=== PATIENT | male | born 1965 | race Caucasian/White ===

== ENCOUNTER 2021-04-09 12:05 | Outpatient (CLI) | payer BC, SELFPAY ==
[2021-04-09 12:29] VITALS: BP 135/83; PULSE 74; RESP 20; TEMP 38.3; O2SAT 98; BMI 30.2
[2021-04-09 13:00] VITALS: BP 117/78; PULSE 67; RESP 16; O2SAT 95
[2021-04-09 13:56] VITALS: BP 127/78; PULSE 70; RESP 18; TEMP 38.8; O2SAT 93
== END 2021-04-09 12:06 | disposition home or self-care (01) ==
LOC: OPS 12:08
PROVIDERS: PCP Nurse Practitioner Family; Visit Provider Nurse Practitioner Family
DX: U07.1 COVID-19 (principal)
CPT/HCPCS: 96365

== ENCOUNTER 2024-03-29 20:16 | Emergency (ER) | payer BC, SELFPAY ==
[2024-03-29] VITALS (13 sets, daily range): BP systolic 82–111; BP diastolic 65–81; PULSE 76–95; RESP 16–31; O2SAT 93–98; BMI 20.7
--- NOTE | 2024-03-29 20:38 | ED_ITS ---
HPI - Nausea/Vomiting/Diarrhea 2 General: Chief complaint: Nausea/Vomiting/Diarrhea Stated complaint: Cancer Pt\Vomiting with Blood Time Seen by Provider: 03/29/24 20:32 History of Present Illness: Patient presents to the ER with his at bedside with complaints of nausea vomiting and constipation. said he has had some blood in his vomitus and it has been like coffee ground emesis. He is constipated they gave him an enema earlier today which she had decent results but his belly is still mildly distended and tender. Patient does have stage IV renal cancer and is undergoing treatment to the oncologist in [facility]. He just recently changed chemotherapy agents approximate week ago due to the fistula not working.. said the new chemotherapy agents can cause severe nausea vomiting constipation and blood clots. Approximately 2 days ago he was diagnosed [place] with a blood clot in his inferior vena cava and started on Eliquis. Patient denies any fever or chills, lightheadedness dizziness chest pain or syncopal type episodes Patient's stated he has a left pleural drain that is due to be drained, upon discharge from the hospital at [facility] he had a right pleural effusion that was worse than his left pleural effusion, his WBCs was about 20K, there he had a CT scan of his chest abdomen pelvis with contrast. Related Data Previous Rx's Medication Instructions Recorded levofloxacin 500 mg tablet 500 mg PO Q24H 7 days #7 tabs 03/30/24 meclizine 25 mg tablet 25 mg PO QID PRN nausea and 03/30/24 vomiting #14 tabs promethazine 25 mg tablet 25 mg PO Q6H PRN nausea and 03/30/24 vomiting #14 tabs Allergies Allergy/AdvReac Type Severity Reaction Status Date / Time No Known Allergies Allergy Verified 03/29/24 20:29 Review of Systems 2 General: Reports: 10 or more systems reviewed and unremarkable except in HPI and below Physical Exam 2 Const: COMMON NORMALS: no acute distress, average body habitus, patient oriented x3, no limitations, healthy appearing, alert and well nourished HENMT: COMMON NORMALS: normocephalic, atraumatic, hearing grossly normal bilaterally, external ears normal, Normal external nose present and moist oral mucous membranes HEAD & SCALP: normocephalic and atraumatic NOSE: Normal external nose present EXTERNAL EAR: Yes external ears normal Neck/C-Spine: COMMON NORMALS: no JVD Chest: COMMONS NORMALS: normal inspection of the chest and normal palpation of entire chest wall Resp: COMMON NORMALS: normal respiratory effort, No retractions, No use of accessory muscles and clear to auscultation bilaterally AUSCULTATION: clear to auscultation bilaterally Cardio: COMMON NORMALS: no JVD, regular rate, regular rhythm, S1 normal heart sound present, S2 normal heart sound present, No gallops present (Cardio), No clicks present (Cardio), No murmurs present (Cardio) and No rub (Cardio) R ATE: regular rate RHYTHM: regular rhythm HEART SOUNDS: S1 normal heart sound present and S2 normal heart sound present GI: COMMON NORMALS: Soft to palpation, non-tender, No hepatosplenomegaly present and no masses PALPATION: Yes Soft to palpation and Yes No hepatosplenomegaly present Neuro: COMMON NORMALS: patient oriented x3 SENSORIUM/ORIENTATION: Yes alert Course 2 Vital Signs: Vital signs: Vital Signs Pulse Rate 89 03/30/24 03:52 Respiratory Rate 25 H 03/30/24 03:13 Blood Pressure 114/70 03/30/24 03:52 Pulse Oximetry 93 03/30/24 03:52 Oxygen Delivery Me thod Nasal Cannula 03/30/24 01:00 Oxygen Flow Rate 2 03/29/24 20:26 MDM - Nausea/Vomiting/Diarrhea Medical Decision Making After checking on the patient multiple times during his stay here. Patient said the combination of medicines and fluid made him feel better and he was ready to go home.. Patient has not had any more vomiting and was able to drink water without difficulty. Patient did receive 3 L of normal saline and Zosyn. Patient also received 10 mg of Decadron, 25 mg of Benadryl, 50 mg of meclizine, 10 mg Reglan, 8 mg of Zofran. The findings of the lab work was reviewed with the patient and his , as well as the CT scans and lab work that was done in [place] 2 days prior. There has not been much of a change in his lab work. I feel the possible pneumonia and effusion on the left side today is probably due to him not draining his chest tube yet and it needs to be drained currently. And since his white count is almost the same as it was 2 days ago this would not go along with pneumonia, and the elevation of his lactic acid could be due to dehydration and vomiting as it did improve with hydration. The rest of his lab work is pretty consistent with dehydration. However we will still place him on antibiotic and other antinausea medicines. Patient was instructed that if his symptoms worsen such as more uncontrolled vomiting vomiting with a large amount of blood, lightheaded, dizziness, fast heart rate patient overall feeling worse he may need to come back to the hospital for reevaluation and probable admission. He is aware that he is high risk for more bleeding due to the Eliquis but he is also at high risk for worsening clot if we were to take him off of it. Patient be discharged home and should arrange close follow-up with family practice or specialty care within the next few days Medical Records I reviewed the patient's medical records. Lab Data I reviewed the patient's lab results. 03/29/24 21:01 03/29/24 21:01 Radiology Impressions Chest X-Ray 03/29/24 21:38 IMPRESSION: Left lower lobe pneumonia with associated parapneumonic effusion. Laboratory Results WBC 21.39 10^3/uL (3.29-11.43) H 03/29/24 21: RBC 5.06 10^6/uL (3.85-5.65) 03/29/24 21: Hgb 14.70 g/dL (11.27-16.99) 03/29/24 21: Hct 46.2 % (37-53) 03/29/24 21: MCV 91.3 fl (82-101) 03/29/24 21: MCH 29.1 pg (27-33) 03/29/24 21: MCHC 31.8 g/dL (30-55) 03/29/24 21: RDW 13.9 % (12.1-15.1) 03/29/24 21: Plt Count 525 10^3/cmm (157-399) H 03/29/24 21: MPV 9.8 fL (7.4-10.4) 03/29/24 21: Neut % (Auto) 88.7 % 03/29/24 21: Lymph % (Auto) 6.9 % 03/29/24 21: [place] % (Auto) 3.8 % 03/29/24 21:01 Eos % (Auto) 0.0 % 03/29/24 21:01 Baso % (Auto) 0.3 % 03/29/24 21: Neut # (Auto) 18.96 10^3/uL (1.8-7.7) H 03/29/24 21:01 Lymph # (Auto) 1.5 10^3/uL (0.8-4.8) 03/29/24 21:01 [place] # (Auto) 0.8 10^3/uL (0.2-0.9) 03/29/24 21:01 Eos # (Auto) 0.0 10^3/uL (0.0-0.8) 03/29/24 21:01 Baso # (Auto) 0.1 10^3/uL (0.0-0.1) 03/29/24 21:01 Nucleated RBC % (auto) 0 % 03/29/24 21: Nucleated RBCs # 0.0 /100WBC 03/29/24 21: PT 15.70 SECONDS (12.1-14.9) H 03/29/24 21:01 INR 1.21 (0.8-1.2) H 03/29/24 21:01 Sodium 134 mmol/L (136-145) L 03/29/24 21:01 Potassium 5.3 mmol/L (3.5-5.1) H 03/29/24 21:01 Chloride 84 mmol/L (98-107) L 03/29/24 21:01 Carbon Dioxide 34 mmol/L (22-29) H 03/29/24 21:01 Anion Gap 21.3 (5-19) H 03/29/24 21:01 BUN 36 mg/dL (6-20) H 03/29/24 21:01 Creatinine 1.0 mg/dL (0.7-1.2) 03/29/24 21: GFR Calculation 77.0 mL/min (90-130) L 03/29/24 21:01 Glucose 170 mg/dL (65-115) H 03/29/24 21:01 Calculated Osmolality 290 mOsm/kg (285-295) 03/29/24 21:01 Lactic Acid 5.3 mmol/L (0.5-2.2) H* 03/30/24 00:07 Lactic Acid (Sepsis) 3.5 mmol/L (0.5-2.2) H 03/30/24 02:52 Calcium 10.6 mg/dL (8.5-10.5) H 03/29/24 21:01 Phosphorus 6.0 mg/dL (2.5-4.5) H 03/29/24 21:01 Magnesium 2.4 mg/dL (1.7-2.3) H 03/29/24 21:01 Total Bilirubin 0.2 mg/dL (0.15-1.2) 03/29/24 21:01 AST 26 U/L (0-40) 03/29/24 21:01 ALT 29 U/L (0-41) 03/29/24 21: Alkaline Phosphatase 113 U/L (40-130) 03/29/24 21:01 Total Protein 7.0 g/dL (6.6-8.7) 03/29/24 21: Albumin 3.4 g/dL (3.5-5.2) L 03/29/24 21: Globulin 3.6 g/dL (1.3-4.6) 03/29/24 21:01 Procalcitonin 0.26 ng/mL (0-0.5) 03/30/24 00:07 Urine Color Dark yellow (Yellow) A 03/29/24 21:57 Urine Appearance Cloudy (CLEAR) A 03/29/24 21:57 Urine pH 6.0 (5-7) 03/29/24 21:57 Ur Specific [place] 1.027 (1.005-1.030) 03/29/24 21:57 Urine Protein 1+ (Negative) A 03/29/24 21:57 Urine Glucose (UA) Negative (Normal) 03/29/24 21:57 Urine Ketones Trace (Negative) 03/29/24 21:57 Urine Blood 2+ (Negative) A 03/29/24 21:57 Urine Nitrate Negative (Negative) 03/29/24 21:57 Urine Bilirubin 1+ (Negative) H 03/29/24 21:57 Urine Urobilinogen 1.0 mg/dL (Negative) 03/29/24 21:57 Ur Leukocyte Esterase Negative (Negative) 03/29/24 21:57 Urine RBC 51-100 /hpf (0-2) H 03/29/24 21:57 Urine WBC 0-5 /hpf (0-5) 03/29/24 21:57 Ur Squamous Epith Cells 21-50 /hpf (0-5) 03/29/24 21:57 Amorphous Sediment Not Reportable 03/29/24 21:57 Urine Bacteria Trace /hpf (NONE) 03/29/24 21:57 Hyaline Casts 20.67 /lpf 03/29/24 21:57 Urine Mucus 2+ /hpf 03/29/24 21:57 All radiology interpretation(s) finalized by discharge Discharge Plan Discharge Patient Disposition: Home Clinical Impression: Dehydration, Pleural effusion on left, Anticoagulation adequate Nausea & vomiting Qualifiers: Vomiting type: unspecified Qualified Code(s): R11.2 - Nausea with vomiting, unspecified Condition: Stable Prescriptions: New promethazine 25 mg tablet 25 mg PO Q6H PRN (Reason: nausea and vomiting) Qty: 14 0RF meclizine 25 mg tablet 25 mg PO QID PRN (Reason: nausea and vomiting) Qty: 14 0RF levofloxacin 500 mg tablet 500 mg PO Q24H 7 Days Qty: 7 0RF Discharge Orders: Discharge ED (Routine); Ordered 03/30/24 Ordered By: Kevin Patel Referrals: Julio,DEV MckennaP [Primary Care Provider] - 1 week Patient Instructions: Nausea and Vomiting - Oncology, Dehydration (ED), Pleural Effusion Activity Restrictions/Additional Instructions: Multiple medicines have been sent to your pharmacy include an antibiotic for you take every day for 7 days as well as to nausea medicine to take as needed. Please follow the instructions. You may also use Benadryl 50 mg every 6 hours as needed for nausea and vomiting. Please drink plenty of fluids. Your evaluation here in ER was very similar to your evaluation in [place]. They did place you on anticoagulant which may be the cause of your potential bleeding. You do have a blood clot and therefore need to be on an anticoagulant. If your bleeding gets worse or your symptoms get worse you may have to go off your anticoagulant. If your symptoms worsen please return to the ER or follow-up with your primary care or oncologist. Coding Level of Care Code ED Spud [employer]iller for Julian Smith
[2024-03-29] MEDS: sodium chloride 0.9% 1,000 ML 999 ML IV ×2 (21:00→23:53)
[2024-03-29] MEDS: ondansetron 2 mg/ML SDV 2 mL 8 MG IVP (21:00)
[2024-03-29 21:16] LABS: Basophils # 0.1 10^3/uL (0.0-0.1); Basophils % 0.3 %; Hematocrit 46.2 % (37-53); Lymphocytes # 1.5 10^3/uL (0.8-4.8); Lymphocytes % 6.9 %; Mean Corpuscular HGB Conc 31.8 g/dL (30-55); Mean Corpuscular Hemoglobin 29.1 pg (27-33); Mean Corpuscular Volume 91.3 fl (82-101); Mean Platelet Volume 9.8 fL (7.4-10.4); Monocytes # 0.8 10^3/uL (0.2-0.9); Monocytes % 3.8 %; Neutrophils # 18.96 10^3/uL (1.8-7.7); Neutrophils % 88.7 %; Nucleated Red Blood Cells % 0 %; Platelet Count 525 10^3/cmm (157-399); Red Blood Count 5.06 10^6/uL (3.85-5.65); Red Cell Distribution Width 13.9 % (12.1-15.1); White Blood Count 21.39 10^3/uL (3.29-11.43)
[2024-03-29 21:37] LABS: INR 1.21 (0.8-1.2)
[2024-03-29 21:38] LABS: Alanine Aminotransferase 29 U/L (0-41); Albumin Level 3.4 g/dL (3.5-5.2); Alkaline Phosphatase 113 U/L (40-130); Anion Gap 21.3 (5-19); Aspartate Amino Transferase 26 U/L (0-40); Blood Urea Nitrogen 36 mg/dL (6-20); Calcium 10.6 mg/dL (8.5-10.5); Carbon Dioxide 34 mmol/L (22-29); Chloride 84 mmol/L (98-107); Creatinine Clr Calc Pharmacy 83.2467; Globulin 3.6 g/dL (1.3-4.6); Glucose 170 mg/dL (65-115); Magnesium 2.4 mg/dL (1.7-2.3); Osmolality Calculated 290 mOsm/kg (285-295); Potassium 5.3 mmol/L (3.5-5.1); Sodium 134 mmol/L (136-145); Total Bilirubin 0.2 mg/dL (0.15-1.2)
--- NOTE | 2024-03-29 21:38 | XRR_ITS ---
PROCEDURE INFORMATION: Exam: XR Chest Exam date and time: 03/29/2024 10:13 PM Age: 58 years old Clinical indication: Condition or disease; Other: Leukocytosis; Additional info: Hypoxia leukocytosis TECHNIQUE: Imaging protocol: Radiologic exam of the chest. Views: 1 view. COMPARISON: CR XR chest 2V* [id number] 03/16/2019 8:18 AM FINDINGS: Lungs: Left lower lobe consolidation. Right lower lobe reticular opacities that might represent atelectasis versus infiltrates. Pleural spaces: Small left pleural effusion. Heart/Mediastinum: Obscured by left lower lobe consolidation. 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 XR/XR chest 1V portable [id number] IMPRESSION: Left lower lobe pneumonia with associated parapneumonic effusion.
[2024-03-29 22:23] LABS: Charge for UA Resulting for Rev
[2024-03-29 22:27] LABS: Bilirubin Urine 1+ (Negative); Blood Urine 2+ (Negative); Glucose Urine UA Negative (Normal); Ketones Urine Trace (Negative); Leukocyte Esterase Urine Negative (Negative); Nitrate Urine Negative (Negative); Protein Urine 1+ (Negative); Specific Gravity, Urine 1.027 (1.005-1.030); Urine Appearance Cloudy (CLEAR); Urine Color Dark Yellow (Yellow)
[2024-03-29 22:31] LABS: Bacteria Urine Trace /hpf; Hyaline Casts Urine 20.67 /lpf; RBC Urine 51-100 /hpf (0-2); Squamous Epithelial Cell Urine 21-50 /hpf (0-5); WBC Urine 0-5 /hpf (0-5)
[2024-03-29 22:40] LABS: Add Urine Culture? Yes; Mucus Urine 2+ /hpf; UA Slide Review UA Slide Review Perf
[2024-03-29] MEDS: metoclopramide 5 mg/mL SDV 2 mL 10 MG IVP (23:54)
[2024-03-30] MEDS: piperacillin-tazobactam 3.375 GM in sodium chloride 0.9% (plus) 50 ML IV (00:07)
[2024-03-30 00:48] LABS: Procalcitonin 0.26 ng/mL (0-0.5)
[2024-03-30 01:00] VITALS: BP 85/61; PULSE 101; RESP 21; O2SAT 94
[2024-03-30 01:20] LABS: Lactic Sepsis W/Reflex 5.3 mmol/L (0.5-2.2)
[2024-03-30] MEDS: sodium chloride 0.9% 1,000 ML 999 ML IV (01:23)
[2024-03-30] MEDS: diphenhydrAMINE 50 mg/mL SDV 1mL 25 MG IVP (02:00)
[2024-03-30] MEDS: dexamethasone 10 mg/mL INJ IVP (02:00)
[2024-03-30] MEDS: meclizine 25 mg tablet 50 MG PO (02:02)
[2024-03-30 02:06] LABS: Reflex Lactate Order REFLEX LACTIC ORDERD
[2024-03-30 03:13] VITALS: BP 94/61; PULSE 92; RESP 25; O2SAT 94
[2024-03-30 03:13] LABS: Lactic Acid level (Lactate) 3.5 mmol/L (0.5-2.2)
[2024-03-30 03:52] VITALS: BP 114/70; PULSE 89; O2SAT 93
== END 2024-03-30 03:54 | disposition home or self-care (01) ==
PROVIDERS: Emergency Provider Emergency Medicine; PCP Nurse Practitioner Family
DX: R11.2 Nausea with vomiting, unspecified (principal); E86.0 Dehydration; J90 Pleural effusion, not elsewhere classified; C64.9 Malignant neoplasm of unspecified kidney, except renal pelvis; Z79.60 Long term (current) use of unspecified immunomodulators and immunosuppressants
CPT/HCPCS: 36415; 71045; 80053; 81003; 81015; 83605; 83735; 84100; 84145; 85025; 85610; 87040; 87077; 87086; 87186; 96365; 96375; 99284; J1100; J1200; J2405; J2543; J2765; J7030; J8597